=== PATIENT | female | born 1980 | race Caucasian/White ===

== ENCOUNTER → 2022-03-18 | Outpatient (CLI) | payer OTHER ==
[2022-03-18 18:39] LABS: Creatinine,Urine Random 84.1 mg/dL; Protein/Creatinine Ratio,Urine 0.083
[2022-03-18 23:00] LABS: Basophils # (A) 0.05 X 10*3/uL (0.00-0.10); Basophils % (A) 0.8 %; Eosinophils # (A) 0.06 X 10*3/uL (0.04-0.35); Eosinophils % (A) 0.9 %; HCT 42.6 % (37.2-46.3); HGB 14.8 g/dL (12.0-15.0); Immature Grans, Automated 0.3 %; Lymphocytes # (A) 2.06 X 10*3/uL (0.90-5.00); Lymphocytes % (A) 31.5 %; MCHC 34.7 g/dL (32.0-37.0); MCV 95.1 fL (80.0-97.0); Mean Platelet Volume 9.8 fL (9.5-12.2); Monocytes # (A) 0.58 X 10*3/uL (0.20-1.00); Monocytes % (A) 8.9 %; NRBC Per 100 WBC 0 /100 WBCS (0.0-0.0); Neutrophils # (A) 3.76 X 10*3/uL (1.80-7.70); Neutrophils % (A) 57.6 %; Platelet Count 355 X 10*3/uL (140-440); RBC 4.48 X 10*6/uL (4.10-5.20); RDW 13.2 % (11.5-14.5); WBC 6.53 X 10*3/uL (4.50-10.00)
[2022-03-18 23:28] LABS: ALT 23 U/L (8-44); AST 21 U/L (13-35); African American GFR (CKD) 58.5 (60.0-200.0); Albumin 4.7 g/dL (3.8-4.9); Albumin/Globulin Ratio 2.34 (1.60-3.17); Alkaline Phosphatase 70 U/L (41-126); BUN/Creat Ratio 13.74 Ratio (12.00-20.00); Carbon Dioxide 26.8 mmol/L (20.0-27.5); Chloride 105 mmol/L (96-109); Glucose 57 mg/dL (70-110); Non-African American GFR(CKD) 50.5 (60.0-200.0); Potassium 4.5 mmol/L (3.5-5.5); Sodium 142 mmol/L (135-145); Total Bilirubin <0.15 mg/dL (0.30-1.20); Total Protein 6.7 g/dL (6.2-8.2)
[2022-03-18 23:29] LABS: Appearance,Urine Clear (Clear); Bilirubin,Urine Negative (Negative); Blood,Urine Negative (Negative); Color,Urine Yellow (Yellow); Ketones,Urine Negative (Negative); Nitrite,Urine Negative (Negative); PH, Urine 7.5 (5.0-8.0); Specific Gravity,Urine 1.019 (1.001-1.030); Urobilinogen,Urine 0.2 (0.2,1.0)
[2022-03-19 02:06] LABS: Anti-DNA, DS unit <1.0 IU/mL; DNA Double-Stranded NEGATIVE (NEGATIVE)
[2022-03-19 03:35] LABS: Microalbumin Creatinine Ratio <30 mg/g Creat (0-30); Urine Creatinine 89.2 mg/dL (28.0-217.0)
[2022-03-19 14:03] LABS: C-ANCA <1:20 Titer (<1:20)
[2022-03-20 11:34] LABS: Anti-Glomerular Basement Memb 3 UNITS (0-20)
== END | disposition home or self-care (01) ==
LOC: LABWHC1 15:36
PROVIDERS: ATTEND Internal Medicine
DX: R76.8 Other specified abnormal immunological findings in serum (principal); R31.9 Hematuria, unspecified; R53.83 Other fatigue
CPT/HCPCS: 36415; 80053; 81003; 82043; 82570; 83516; 84156; 85025; 86225; 86255; 87086